=== PATIENT | male | born 1990 | race Caucasian/White ===

== ENCOUNTER 2017-08-20 22:24 | Emergency (ER) | payer OTHER ==
[2017-08-20 22:32] VITALS: BP 144/82
--- NOTE | 2017-08-20 22:44 | ED Physician Documentation ---
PD HPI UPPER EXT INJURY - Stated complaint Stated Complaint: L SHOULDER PAIN - Chief complaint Chief Complaint: Trauma Ext - History obtained from History obtained from: Patient - History of Present Illness Location: Left, Shoulder Type of injury: Other Where injury occurred: Other (gym) Timing - onset: Today Timing - details: Abrupt onset, Still present Associated symptoms: Numbness, Tingling Similar symptoms before: Has not had sx before Recently seen: Not recently seen - Additonal information Additional information: Patient is a 26 year old male with no significant past medical history who is presenting to the emergency department for right sided shoulder pain. patient was using the ab roller when he over extended his shoulder. Patient felt like her hear a pop and now has numbness in his shoulder. Review of Systems Constitutional: denies: Fever, Chills Eyes: reports: Reviewed and negative Ears: reports: Reviewed and negative Nose: reports: Reviewed and negative Throat: reports: Reviewed and negative Cardiac: reports: Reviewed and negative Respiratory: reports: Reviewed and negative GI: reports: Reviewed and negative Musculoskeletal: reports: Extremity pain, Joint pain, Extremity swelling, Joint swelling Neurologic: reports: Numbness Immunocompromised: denies: Immunocompromised PD PAST MEDICAL HISTORY - Past Medical History Past Medical History: No - Past Surgical History Past Surgical History: Yes - Present Medications Home Medications: Ambulatory Orders Medication Instructions Recorded Confirmed No Known Home Medications [No 08/20/17 08/20/17 Known Home Medications] - Allergies Allergies/Adverse Reactions: Allergies Allergy/AdvReac Type Severity Reaction Status Date / Time No Known Drug Allergies Allergy Verified 08/20/17 22:32 - Social History Does the pt smoke?: No Smoking Status: Never smoker Does the pt drink ETOH?: Yes Does the pt have substance abuse?: No - Immunizations Immunizations are current?: Yes - POLST Patient has POLST: No PD ED PE NORMAL - Vitals Vital signs reviewed: Yes - General General: Alert and oriented X 3 - HEENT HEENT: Atraumatic, PERRL - Cardiac Cardiac: RRR - Respiratory Respiratory: No respiratory distress - Abdomen Abdomen: Non distended - Derm Derm: Normal color, No rash - Neuro Neuro: Alert and oriented X 3, No sensory deficit Eye Opening: Spontaneous Motor: Obeys Commands Verbal: Oriented GCS Score: 15 PD ED PE EXPANDED - Extremities Extremities: Left shoulder (tenderness to palpation of left shoulder, full passive rom), Motor intact, Sensory intact, Vascular intact, Tendon intact Results - Vitals Vitals: Vital Signs - 24 hr 08/20/17 22:25 Temperature 36.5 C Heart Rate 69 Respiratory 16 Rate Blood Pressure 144/82 H O2 Saturation 98 Oxygen O2 Source Room air - Rads (name of study) left shoulder x-ray Radiology: EMP read contemporaneously (no acute fracutre or dislocation) PD MEDICAL DECISION MAKING - ED course Complexity details: reviewed old records, reviewed results, re-evaluated patient , considered differential, d/w patient ED course: Patient was seen and examined at bedside. Patient was sent for imaging. when patient returned the results were reviewed. there was no acute fracture or dislocation. patient was placed in a sling and treated with toradol and decadron. Patient required no further work up and was stable for discharge with outpatient follow up. Departure - Departure Disposition: 01 Home, Self Care Clinical Impression: Sprain of shoulder, left Condition: Good Instructions: ED Sprain Shoulder Follow-Up: AMI ENAMORADO MD [Primary Care Provider] - Tomorrow Comments: Your diagnostics today were within normal limits. there is no acute fracture or dislocation. You should ice your shoulder at least 4 times a day and alternate between motrin and tylenol as needed for pain. You should follow up with your base doctor. If your symptoms don't improve in the next 14 days you might need an mri for further evaluation. Forms: Activity restrictions
--- NOTE | 2017-08-20 22:51 | XRAY Preliminary Report ---
Exam: XR SHOULDER 3 VIEW LT IMPRESSION: Normal shoulder radiography. [facility] SITE ID: [id number]
[2017-08-20] MEDS ORDERED: DEXAMETHASONE 10 MG/ML VIAL PO STA (22:57)
[2017-08-20] MEDS ORDERED: KETOROLAC 60 MG/2 ML VIAL IM STA (22:57)
--- NOTE | 2017-08-20 23:23 | XRAY Report ---
EXAM: LEFT SHOULDER RADIOGRAPHY EXAM DATE: 08/20/2017 10:44 PM. CLINICAL HISTORY: Left shoulder pain. COMPARISON: None. TECHNIQUE: 3 views. FINDINGS: Bones: Normal. No fracture or bone lesion. Joints: The glenohumeral and acromioclavicular joints are normal. Soft tissues: The visualized hemithorax is unremarkable. No soft tissue swelling. IMPRESSION: Normal shoulder radiography. [facility] Referring Provider Line: [phone] SITE ID: [id number]
== END 2017-08-20 23:18 | disposition home or self-care (01) ==
LOC: ED 22:24
DX: S43.402A Unspecified sprain of left shoulder joint, initial encounter (principal); X50.1XXA Overexertion from prolonged static or awkward postures, initial encounter; Y93.B9 Activity, other involving muscle strengthening exercises
CPT/HCPCS: 96372; 99283